=== PATIENT | male | born 1950 | race Caucasian/White ===

== ENCOUNTER 2024-11-03 06:33 | Day surgery (SDC) | payer MEDICARE, OTHER, SELFPAY | END 2024-11-03 14:50 | disposition home or self-care (01) | LOC: GI 06:33 | PROVIDERS: ATTENDING PHYSICIAN Internal Medicine Gastroenterology | DX: Z12.11 Encounter for screening for malignant neoplasm of colon (principal); R19.5 Other fecal abnormalities; K57.30 Diverticulosis of large intestine without perforation or abscess without bleeding; K63.89 Other specified diseases of intestine; K64.8 Other hemorrhoids; D49.0 Neoplasm of unspecified behavior of digestive system; K62.89 Other specified diseases of anus and rectum; D12.0 Benign neoplasm of cecum; D12.3 Benign neoplasm of transverse colon; K52.9 Noninfective gastroenteritis and colitis, unspecified | CPT/HCPCS: 45385; 45381; 45380; 88305; 88341; 88342 ==

== ENCOUNTER → 2024-11-27 14:02 | Outpatient (REF) | payer MEDICARE, OTHER, SELFPAY | LOC: REG 14:02 | PROVIDERS: ATTENDING PHYSICIAN Internal Medicine Gastroenterology | DX: K58.9 Irritable bowel syndrome, unspecified (principal) | CPT/HCPCS: 83993 ==

== ENCOUNTER → 2025-01-11 10:47 | Outpatient (REF) | payer MEDICARE, OTHER, SELFPAY | LOC: REG 10:47 | PROVIDERS: ATTENDING PHYSICIAN Internal Medicine Gastroenterology; FAMILY PHYSICIAN Internal Medicine | DX: K58.9 Irritable bowel syndrome, unspecified (principal) | CPT/HCPCS: 83993 ==

== ENCOUNTER 2025-01-16 06:13 | Day surgery (SDC) | payer MEDICARE, OTHER, SELFPAY ==
[2025-01-16 07:10] VITALS: BP 139/90
[2025-01-16 07:12] VITALS: BMI 26.5
[2025-01-16 10:54] VITALS: BP 114/72
[2025-01-16 11:00] VITALS: BP 119/84
[2025-01-16 11:15] VITALS: BP 116/77
[2025-01-16 11:30] VITALS: BP 122/81
== END 2025-01-16 11:53 | disposition home or self-care (01) ==
LOC: SDS 06:13
PROVIDERS: ATTENDING PHYSICIAN Internal Medicine Gastroenterology
DX: D12.0 Benign neoplasm of cecum (principal); D12.2 Benign neoplasm of ascending colon; D12.3 Benign neoplasm of transverse colon; K51.40 Inflammatory polyps of colon without complications; K63.89 Other specified diseases of intestine; K64.9 Unspecified hemorrhoids
CPT/HCPCS: 45390; 45385; 45380; 88305

== ENCOUNTER → 2025-10-04 10:04 | Outpatient (REF) | payer MEDICARE, OTHER, SELFPAY ==
[2025-10-04 11:06] LABS: Hematocrit 52.3 % (39.0-52.0); Hemoglobin 16.4 g/dL (13.0-18.0); Mean Corp Hgb Conc. 31.4 g/dL (33.0-37.0); Mean Corpuscular Volume 97.2 fL (80.0-94.0); Nucleated Red Blood Cells % 0 % (-); Platelet Count 188 10^3/uL (130-400); Red Cell Dist. Width 13.0 % (11.5-14.5)
[2025-10-04 11:18] LABS: ALT (SGPT) 16 U/L (0-50); AST (SGOT) 26 U/L (17-59); Albumin 4.4 g/dl (3.5-5.0); Alkaline Phosphatase 98 U/L (38-126); Blood Urea Nitrogen 12 mg/dl (9-20); Calcium 9.0 mg/dl (8.4-10.2); Carbon Dioxide 31 mmol/L (22-30); Chloride 104 mmol/L (98-107); Glucose 84 mg/dl (70-99); HDL Cholesterol 43 mg/dl; LDL Cholesterol, Calculated 61 mg/dl; Potassium 4.4 mmol/L (3.5-5.1); Sodium 141 mmol/L (135-145); Total Protein 6.7 g/dl (6.3-8.2); Very Low Density Lipoprotein 17 mg/dl (0-30); eGFR > 60.00
[2025-10-04 11:44] LABS: TSH 1.57 uIU/ml (0.47-4.68)
== END ==
LOC: REG 10:04
PROVIDERS: ATTENDING PHYSICIAN Internal Medicine
DX: E78.5 Hyperlipidemia, unspecified (principal); E29.1 Testicular hypofunction; R53.83 Other fatigue; N40.0 Benign prostatic hyperplasia without lower urinary tract symptoms
CPT/HCPCS: 36415; 80053; 80061; 84153; 84154; 84403; 84443; 85025